=== PATIENT | male | born 1990 | race Caucasian/White ===

== ENCOUNTER → 2017-04-16 | Day surgery (SDC) | payer BC ==
[~2017-04-16] VITALS: Ht 182.9 cm; Wt 94.6 kg
[~2017-04-16] MED LIST: *MEPERIDINE 25 MG INJ VIAL PERIprocedural Use ONLY ONE; ACETAMINOPHEN/HYDROcodone 325 MG/7.5 MG TAB PO PRN; BETAMETHASONE SOD PHOS/ACETATE SUSP 30 MG/5 ML VIAL OTHER ONE; BUPIVACAINE/EPINEPHRINE 0.5% 50 ML VIAL ONE; CHLORHEXIDINE GLUCONATE 2 % 1 PACK (2 CLOTHS) TOPICAL PRN; DEXAMETHASONE SOD PHOS 4 MG/ML VIAL ONE; DIAZ10TA PO; DO NOT ADM ANY ANTICOAGULANT DRUGS PRN; GELATIN 12 MM/7 MM FOAM ONE; GENTAMICIN SULFATE 80 MG/2 ML VIAL ONE; HYDR-3366 PO; HYDR-3534 PO; INSULIN HUMAN REGULAR 1,000 UNITS/10 ML VIAL SQ PRN; KETOROLAC TROMETHAMINE 30 MG/ML (IVP) VIAL IV PUSH ONE; LACTATED RINGER'S 1000 ML IV PRN; METOPROLOL TARTRATE 25 MG TAB PO PRN; MIDAZOLAM HCL 2 MG/2 ML VIAL ONE; MORPHINE SULFATE 4 MG/ML INJ IV PRN; NEOSTIGMINE 3 MG/3 ML SYR IV ONE; ONDANSETRON HCL 4 MG/2 ML VIAL IV PUSH ONE; PHENYLEPH/NS 1000 MCG/10 ML SYR IV ONE; POVIDONE IODINE 5% (ANTISEPSIS KIT) 4 APPLICATIONS EACH NARE PRN; POVIDONE IODINE 7.5% SCRUB 118 ML BOTTLE TOPICAL SCH; PROPOFOL 200 MG/20 ML AMP IV ONE; SODIUM CHLORID 0.9% 500 ML IV PRN; ceFAZolin 2 GM PREMIX 50 ML IV SCH; ePHEDrine/NS 25 MG/5 ML SYR IV ONE; fentaNYL CITRATE 250 MCG/5 ML AMP ONE
[2017-04-16 08:22] VITALS: BP 125/76; PULSE 64; RESP 18; TEMP 98.5; O2SAT 98
--- NOTE | 2017-04-16 08:33 | MH ---
cc: ROSIE DOLL DATE OF ADMISSION: 04/16/2017 ADMITTING DIAGNOSIS Herniated nucleus pulposus lumbar spine. HISTORY OF THE PRESENT ILLNESS This patient is a 26-year-old white male who presents for treatment of his lumbar spine. Approximately 3 months ago he had acute onset of low back pain unrelated to any specific event. He began developing left leg and foot pain. The patient was given injection of medication. This helped somewhat. He presented to the emergency room and was evaluated and started on a Medrol Dosepak, hydrocodone and Flexeril. The patient presented to the office of the undersigned on February 16, 2017. Investigative studies shows evidence of the disk herniation eccentric to the left at the L5-S1 level. He is having radiating pain to the left hip and foot. He is having weakness into the left foot. He went for three epidural steroid injections which helped somewhat but did not give long-term or lasting relief. He now presents for surgical treatment. PAST MEDICAL HISTORY, SOCIAL HISTORY AND FAMILY HISTORY System see attached notes. REVIEW OF SYSTEMS See attached notes. PHYSICAL EXAMINATION GENERAL: A 26-year-old white male 6 feet to 220 pounds, BMI 29.8. VITAL SIGNS: Blood pressure 122/74. HEENT: Normocephalic, atraumatic. Pupils equal, round, reactive to light and accommodation. Extraocular motions intact. NECK: Supple. CHEST: Clear. CARDIOVASCULAR: Regular rate and rhythm. ABDOMEN: Soft, nontender, normoactive bowel sounds. MUSCULOSKELETAL: Left EHL 5-/5. Left gastroc-soleus 4/5. Elhyunbo-ird-hnnmq is positive on the left, negative on the right. Sensation is altered lateral border the foot and the sole of the foot. IMPRESSION 1. Herniated nucleus ptosis L5-S1 left. 2. Left S1 radiculopathy. PLAN Lumbar laminectomy left L5, S1, lateral recess decompression, resection herniated nucleus pulposus, use of dilation port and microscope. CONSENT The risks of surgery including infection, bleeding, loss of motion, continued pain, need for further surgery, neurologic and vascular injury. The patient understands these issues and wishes to press on with surgery as outlined above. Rosie Doll MD [facility] [place] /6:10 PM /8:34 AM
--- NOTE | 2017-04-16 12:14 | PD.OP ---
Operative Report Date of Surgery: Apr 16, 2017 Preoperative Diagnosis: Herniated nucleus pulposus L5-S1, left. Left S1 radiculopathy Postoperative Diagnosis: Same Procedure: Lumbar laminectomy from the left L5, S1, lateral recess decompression, resection herniated nucleus pulposus. Use of dilation port and microscope Anesthesia: Gen. Surgeon: José Luis Roth Diamond Sander(s): KORINA Stevenson Operation and Findings: EBL: Minimal cc INDICATION: This patient is a 26-year-old male with severe left hip and leg pain. Studies show evidence of a large disc herniation central and to the left at L5-S1 with significant left S1 nerve root compromise. He presents for surgical treatment. NOTE: Jesika Stevenson PA-C was present for the entire surgical procedure as my creative assistant. In my medical opinion her skill and care was necessary for the proper management of this patient. PROCEDURE: The patient was brought to the operating room and anesthetized in the supine position. The patient was rolled to a prone position on a Steve frame on a Kevon table. All pressure points were protected in the back was scrubbed with alcohol followed by Hibiclens followed by ChloraPrep and draped sterilely. A timeout was done and antibiotics were given. AP and lateral radiographic images were used to identify the proper levels and perform skin markings. We started from the left side at the L5-S1 level. A paramedian incision was made and an off-midline fascial incision was made. A dilating system was placed down to the interlaminar space and held provisionally to the side of the table. The microscope was brought into the field. A high-speed bur under the microscope was used to perform a left-sided laminectomy from that side. A lateral recess decompression was accomplished using straight and angled Kerrison punches. A partial medial facetectomy was accomplished. The crossing and exiting nerve roots were completely decompressed. The wound was irrigated copiously. A small piece of Gelfoam with Celestone was placed into the epidural space. Hemostasis was controlled. The deep fascia was approximated with interrupted 0 Vicryl suture subcutaneous suture with 2-0 Vicryl suture and skin with running intradermal 3-0 Vicryl followed by Dermabond. A field block with local anesthesia was utilized. A sterile dressing was applied. The sponge count and needle counts and instrument counts were all correct. The patient tolerated the procedure well as taken to the recovery room in satisfactory condition. FINDINGS: There was a disc herniation contained centrally into the left creating significant left S1 nerve root compromise at and just below the level of the disc space. The decompression was very satisfactory. No complication was appreciated. José Luis Roth MD Apr 16, 2017 12:14
--- NOTE | 2017-04-16 13:33 | RADRPT ---
EXAM DATE/TIME: 04/16/2017 11:22 [facility] COMPARISON: No previous studies available for comparison. INDICATIONS : L5-S1 Laminectomy. MEDICAL HISTORY : None. SURGICAL HISTORY : None. ENCOUNTER: Initial ACUITY: 1 day PAIN SCORE: Non-responsive. LOCATION: Lumbar spine. FINDINGS: A single lateral view of the lower lumbar spine was performed. A localization device is posteriorly a t the last disc space level which I assume is L5-S1. CONCLUSION: Localization device at the last disc space level. Valentino Bersntein MD on April 16, 2017 at 13:31 Board Certified Radiologist. This report was verified electronically.
[2017-04-16 14:13] VITALS: BP 117/74; PULSE 67; RESP 16; TEMP 96.7; O2SAT 98
== END | disposition home or self-care (01) ==
LOC: HSDC 07:44
PROVIDERS: ATTEND Orthopaedic Surgery Orthopaedic Surgery of the Spine
DX: M51.27 Other intervertebral disc displacement, lumbosacral region (principal); M54.18 Radiculopathy, sacral and sacrococcygeal region; R53.1 Weakness
CPT/HCPCS: 00630; 63030; 72020; 76000; J0690; J0702; J1100; J1580; J1885; J2175; J2250; J2370; J2405; J2710; J3010